=== PATIENT | male | born 1940 | race Caucasian/White ===

== ENCOUNTER 2017-03-01 15:56 | Inpatient (IN) | payer OTHER ==
[~2017-03-01] VITALS: Ht 167.6 cm; Wt 98.3 kg
[~2017-03-01 15:56] MED LIST: ALLOPURINOL100 MG PO; B COMPLETE1 EACH PO; CITALOPRAM HBR20 M1 PO; COLCHICINE,COL0.6 MG PO; COLCHICINE0.6 MG PO; COUMADIN,JANTOVE6 MG PO; DIOVAN HCT 11 TABLET PO; DIOVAN HCT 31 TABLE1 PO; DIOVAN HCT 31 TABLET PO; DOXAZOSIN MESYLA4 MG; FERROUS SULFAT325 M2 PO; FISH OIL 1,0001 EAC7 PO; Feosol PO; GLUCOSAMIN-CHO1 EACH; K-DUR20 MEQ PO; LASIX20 MG PO; LASIX40 MG PO; LASIX80 MG PO; LOPRESSOR100 M1 PO; Lasix PO; Lopressor PO; MULTIPLE VITAM1 EAC1 PO; NORVASC5 MG PO; PRILOSEC20 MG PO; SIMVASTATIN40 MG PO; TOPROL XL100 MG; VITAMIN D1000 UNIT PO; Vicodin,Norco 5/325 PO; ZYLOPRIM100 MG PO; [UNRECOGNIZED DRUG - OTHER]
[2017-03-01 16:38] LABS: ADD MIUA? NO; BILIRUBIN NEGATIVE; BLOOD NEGATIVE; COLOR YELLOW ((YELLOW)); GLUCOSE (STRIP) NEGATIVE; KETONES NEGATIVE; LEUKOCYTES NEGATIVE; NITRITE NEGATIVE; PROTEIN (STRIP) NEGATIVE; SPECIFIC GRAVITY 1.008 (1.000-1.030); UCUL ADDED? NO; UROBILINOGEN 0.2 MG/DL (0.2-1.0)
[2017-03-01 16:45] LABS: HEMATOCRIT 45.2 % (38.0-50.0); MCH 29.4 PG (29.0-34.0); MCHC 33.2 G/DL (30.0-36.0); MCV 88.5 FL (86-99); MEAN PLAT.VOLUME 11.5 uM^3 (9.0-12.4); PLATELET COUNT 160 K/uL (156-360); RBC DIS.WIDTH-CV 13.9 % (11.8-14.6); RBC DIS.WIDTH-SD 44.8 % (39-53); RED BLOOD COUNT 5.11 M/uL (4.00-5.50); WHITE BLOOD COUNT 7.8 K/uL (4.1-10.2)
[2017-03-01 16:55] LABS: CHLORIDE 107 mEq/L (99-109); POTASSIUM 3.3 mEq/L (3.7-5.4); SODIUM 144 mEq/L (136-147)
[2017-03-01 16:57] LABS: GLUCOSE 97 mg/dL (70-99)
[2017-03-01 16:58] LABS: ANION GAP 10 MEQ/L (2-14); INTER. NORMALIZED RATIO 1.5; PROTHROMBIN TIME 15.4 (9.2-11.2)
[2017-03-01 17:01] LABS: GFR ESTIMATE (CALCULATED) > 59 mL/min/; UREA NITROGEN (BUN) 21 mg/dL (9-23)
[2017-03-01 17:09] LABS: TROP-I INTERPRETATION NEGATIVE; TROPONIN-I < 0.01 ng/mL (0.0-0.30)
[2017-03-01] MEDS ORDERED: ALLOPURINOL300 MG PO (20:00)
[2017-03-01] MEDS ORDERED: AMLODIPINE BES2.5 MG PO (20:01)
[2017-03-01] MEDS ORDERED: COLCRYS0.6 MG PO (20:03)
[2017-03-01] MEDS ORDERED: LOSARTAN POTAS100 MG PO (20:04)
[2017-03-01] MEDS ORDERED: FUROSEMIDE40 MG PO (20:04)
[2017-03-01] MEDS ORDERED: LOPRESSOR100 M1 PO (20:05)
[2017-03-01] MEDS ORDERED: DAILY VALUE1 EACH PO (20:06)
[2017-03-01] MEDS ORDERED: PRAVASTATIN SOD80 MG PO (20:07)
[2017-03-01] MEDS ORDERED: B COMPLETE1 EACH PO (20:08)
[2017-03-01] MEDS ORDERED: SERTRALINE HCL100 MG PO (20:08)
[2017-03-01] MEDS ORDERED: CYANOCOBALAM1000 MCG PO (20:09)
[2017-03-01] MEDS ORDERED: ASCORBIC ACID500 M3 PO (20:09)
[2017-03-01] MEDS ORDERED: VITAMIN D22000 UNIT PO (20:10)
[2017-03-01] MEDS ORDERED: XARELTO20 MG PO (20:10)
[2017-03-01 21:42] LABS: HDL CHOLESTEROL 30 MG/DL (Desirable>=40); LDL CHOLESTEROL 71 mg/dL (Desirable<100); NON-HDL CHOLESTEROL 93 mg/dL (Desirable<160); TOTAL CHOLESTEROL 123 mg/dL (Desirable<200); TRIGLYCERIDES 109 MG/DL (Normal: <150)
[2017-03-01 22:04] VITALS: BP 180/86
[2017-03-01 23:25] VITALS: BP 139/73
[2017-03-02 02:34] LABS: TROP-I INTERPRETATION NEGATIVE; TROPONIN-I 0.02 ng/mL (0.0-0.30)
[2017-03-02 04:00] VITALS: BP 148/85
[2017-03-02 06:41] LABS: Estimated Average Glucose 120 mg/dL (70-123); HEMOGLOBIN A1c (GLYCOHEMOGLOB) 5.8 % HGB (Below 5.7)
[2017-03-02 07:04] LABS: HEMATOCRIT 46.8 % (38.0-50.0); MCH 29.1 PG (29.0-34.0); MCHC 32.7 G/DL (30.0-36.0); MCV 89.1 FL (86-99); MEAN PLAT.VOLUME 11.8 uM^3 (9.0-12.4); PLATELET COUNT 170 K/uL (156-360); RBC DIS.WIDTH-CV 14.2 % (11.8-14.6); RBC DIS.WIDTH-SD 45.9 % (39-53); RED BLOOD COUNT 5.25 M/uL (4.00-5.50)
[2017-03-02 07:18] VITALS: BP 181/89
[2017-03-02 07:23] LABS: ALKALINE PHOSPHATASE 59 IU/L (3-129); ANION GAP 8 MEQ/L (2-14); CHLORIDE 106 MEQ/L (99-109); GFR ESTIMATE (CALCULATED) > 59 mL/min/; GLUCOSE 105 mg/dL (70-99); POTASSIUM 3.8 MEQ/L (3.7-5.4); SAMPLE HEMOLYSIS CHECK 0; SAMPLE ICTERIC CHECK 0; SAMPLE LIPEMIA CHECK 0; SODIUM 147 MEQ/L (136-147); TOTAL BILIRUBIN 0.4 MG/DL (0.0-1.0); UREA NITROGEN (BUN) 19 mg/dL (9-23)
[2017-03-02 07:27] LABS: TROP-I INTERPRETATION NEGATIVE; TROPONIN-I < 0.01 ng/mL (0.0-0.30)
[2017-03-02 11:26] VITALS: BP 132/92
[2017-03-02 15:15] VITALS: BP 127/84
[2017-03-02 19:48] VITALS: BP 135/88
[2017-03-02 23:32] VITALS: BP 154/98
[2017-03-03 03:43] VITALS: BP 159/95
[2017-03-03 08:20] VITALS: BP 151/85
[2017-03-03 13:05] VITALS: BP 129/85
[2017-03-03 16:08] VITALS: BP 144/89
[2017-03-03 20:00] VITALS: BP 142/86
[2017-03-04] VITALS: BP 162/88
[2017-03-04 04:00] VITALS: BP 152/89
[2017-03-04 07:57] VITALS: BP 146/76
[2017-03-04] MEDS ORDERED: AMLODIPINE BESYL5 MG PO (11:30)
[2017-03-04] MEDS ORDERED: PROTONIX40 MG PO (13:37)
[2017-03-04] MEDS ORDERED: DULCOLAX10 MG PR (13:37)
== END 2017-03-04 12:21 | DRG 69 ==
LOC: EME 15:56 → 5WEST 20:41 → EDOF 20:41 → 5WEST 21:47 → 5SOUTH 03-02 14:58 → 5WEST 03-02 14:58 → 5SOUTH 03-02 17:35
PROVIDERS: Emergency Medicine; Internal Medicine
PROC: F07M7ZZ Manual Therapy Techniques Treatment of Musculoskeletal System - Whole Body (ICD-10-PCS; principal; 2017-03-02)
DX: G45.9 Transient cerebral ischemic attack, unspecified (principal); I48.0 Paroxysmal atrial fibrillation; I10 Essential (primary) hypertension; I25.10 Atherosclerotic heart disease of native coronary artery without angina pectoris; E78.5 Hyperlipidemia, unspecified; F32.9 Major depressive disorder, single episode, unspecified; R26.81 Unsteadiness on feet; R29.810 Facial weakness; E66.9 Obesity, unspecified; I87.8 Other specified disorders of veins; J32.0 Chronic maxillary sinusitis; I51.7 Cardiomegaly; R68.2 Dry mouth, unspecified; K27.9 Peptic ulcer, site unspecified, unspecified as acute or chronic, without hemorrhage or perforation; K21.9 Gastro-esophageal reflux disease without esophagitis; Z96.653 Presence of artificial knee joint, bilateral; Z68.34 Body mass index [BMI] 34.0-34.9, adult; Z95.0 Presence of cardiac pacemaker; Z98.61 Coronary angioplasty status; Z87.891 Personal history of nicotine dependence
CPT/HCPCS: 70450; 71010; 80048; 80053; 80061; 81003; 82607; 82746; 83036; 84443; 84484; 85027; 85610; 92507 GN; 92523 GN; 93005; 93880; 94660; 97530 GO; 99281; 99285; G0378; G8978 GP CM; G8979 CJ; G8987 GO CJ; G8988 CI

== ENCOUNTER 2017-03-04 08:21 | Inpatient (IN) | payer OTHER ==
[~2017-03-04] VITALS: Ht 167.6 cm; Wt 98.5 kg
[~2017-03-04 08:21] MED LIST changes: +ALLOPURINOL300 MG PO; +AMLODIPINE BES2.5 MG PO; +ASCORBIC ACID500 M3 PO; +COLCRYS0.6 MG PO; +CYANOCOBALAM1000 MCG PO; +DAILY VALUE1 EACH PO; +FUROSEMIDE40 MG PO; +LOSARTAN POTAS100 MG PO; +PRAVASTATIN SOD80 MG PO; +SERTRALINE HCL100 MG PO; +VITAMIN D22000 UNIT PO; +XARELTO20 MG PO
[2017-03-04] MEDS ORDERED: AMLODIPINE BESYL5 MG PO (11:30)
[2017-03-04 12:34] VITALS: BP 137/83
[2017-03-04] MEDS ORDERED: DULCOLAX10 MG PR (13:37)
[2017-03-04] MEDS ORDERED: PROTONIX40 MG PO (13:37)
[2017-03-04 15:02] VITALS: BP 117/75
[2017-03-05 05:33] LABS: HEMATOCRIT 46.1 % (38.0-50.0); MCH 30.1 PG (29.0-34.0); MCHC 33.8 G/DL (30.0-36.0); MCV 88.8 FL (86-99); MEAN PLAT.VOLUME 12.4 uM^3 (9.0-12.4); PLATELET COUNT 158 K/uL (156-360); RBC DIS.WIDTH-CV 14.2 % (11.8-14.6); RBC DIS.WIDTH-SD 45.8 % (39-53); RED BLOOD COUNT 5.19 M/uL (4.00-5.50); WHITE BLOOD COUNT 8.4 K/uL (4.1-10.2)
[2017-03-05 06:16] VITALS: BP 124/79
[2017-03-05 06:19] LABS: ALKALINE PHOSPHATASE 60 IU/L (3-129); ANION GAP 8 MEQ/L (2-14); CHLORIDE 105 MEQ/L (99-109); GFR ESTIMATE (CALCULATED) > 59 mL/min/; GLUCOSE 98 mg/dL (70-99); POTASSIUM 3.6 MEQ/L (3.7-5.4); SAMPLE HEMOLYSIS CHECK 0; SAMPLE ICTERIC CHECK 0; SAMPLE LIPEMIA CHECK 0; SODIUM 143 MEQ/L (136-147); TOTAL BILIRUBIN 0.4 MG/DL (0.0-1.0); UREA NITROGEN (BUN) 24 mg/dL (9-23)
[2017-03-05 08:34] VITALS: BP 134/81
[2017-03-05 15:21] VITALS: BP 138/76
[2017-03-06 05:25] VITALS: BP 138/85
[2017-03-06 06:42] LABS: ANION GAP 8 MEQ/L (2-14); CHLORIDE 106 MEQ/L (99-109); GFR ESTIMATE (CALCULATED) > 59 mL/min/; GLUCOSE 104 mg/dL (70-99); POTASSIUM 3.8 MEQ/L (3.7-5.4); SAMPLE HEMOLYSIS CHECK 0; SAMPLE ICTERIC CHECK 0; SAMPLE LIPEMIA CHECK 0; SODIUM 144 MEQ/L (136-147); UREA NITROGEN (BUN) 23 mg/dL (9-23)
[2017-03-07 05:30] VITALS: BP 152/62
[2017-03-07 15:20] VITALS: BP 158/85
[2017-03-08 05:39] LABS: HEMATOCRIT 46.2 % (38.0-50.0); MCH 29.9 PG (29.0-34.0); MCHC 33.8 G/DL (30.0-36.0); MCV 88.5 FL (86-99); MEAN PLAT.VOLUME 12.2 uM^3 (9.0-12.4); PLATELET COUNT 164 K/uL (156-360); RBC DIS.WIDTH-CV 14.2 % (11.8-14.6); RBC DIS.WIDTH-SD 45.3 % (39-53); RED BLOOD COUNT 5.22 M/uL (4.00-5.50); WHITE BLOOD COUNT 8.1 K/uL (4.1-10.2)
[2017-03-08 05:56] LABS: CHLORIDE 108 mEq/L (99-109); POTASSIUM 3.8 mEq/L (3.7-5.4); SODIUM 145 mEq/L (136-147)
[2017-03-08 05:58] LABS: GLUCOSE 105 mg/dL (70-99)
[2017-03-08 05:59] LABS: ANION GAP 10 MEQ/L (2-14)
[2017-03-08 06:00] LABS: TOTAL BILIRUBIN 0.3 mg/dL (0.0-1.0)
[2017-03-08 06:01] LABS: ALKALINE PHOSPHATASE 61 IU/L (3-129)
[2017-03-08 06:02] LABS: GFR ESTIMATE (CALCULATED) > 59 mL/min/
[2017-03-08 06:03] LABS: UREA NITROGEN (BUN) 28 mg/dL (9-23)
[2017-03-08 06:44] VITALS: BP 134/79
[2017-03-08 15:50] VITALS: BP 121/74
[2017-03-09 05:20] VITALS: BP 142/88
== END 2017-03-09 10:00 | DRG 66 ==
LOC: 3WEST 08:21
PROVIDERS: Physical Medicine & Rehabilitation Pain Medicine
PROC: F07M7ZZ Manual Therapy Techniques Treatment of Musculoskeletal System - Whole Body (ICD-10-PCS; principal; 2017-03-04)
DX: I63.9 Cerebral infarction, unspecified (principal); I48.0 Paroxysmal atrial fibrillation; R47.01 Aphasia; I10 Essential (primary) hypertension; R53.1 Weakness; Z74.09 Other reduced mobility; I25.10 Atherosclerotic heart disease of native coronary artery without angina pectoris; F32.9 Major depressive disorder, single episode, unspecified; G47.30 Sleep apnea, unspecified; E66.9 Obesity, unspecified; R47.81 Slurred speech; E78.5 Hyperlipidemia, unspecified; J32.0 Chronic maxillary sinusitis; M10.9 Gout, unspecified; I51.7 Cardiomegaly; K27.9 Peptic ulcer, site unspecified, unspecified as acute or chronic, without hemorrhage or perforation; Z96.653 Presence of artificial knee joint, bilateral; Z68.35 Body mass index [BMI] 35.0-35.9, adult; Z95.0 Presence of cardiac pacemaker; Z87.891 Personal history of nicotine dependence; Z95.1 Presence of aortocoronary bypass graft
CPT/HCPCS: 80048; 80053; 85027; 92507 GN; 92523 GN; 93005; 94660; 97110 GO; 97532 GN

== ENCOUNTER 2017-07-03 10:37 | Emergency (ER) | payer OTHER ==
[~2017-07-03] VITALS: Ht 165.1 cm; Wt 96.8 kg
[~2017-07-03 10:37] MED LIST changes: +AMLODIPINE BESYL5 MG PO; +DULCOLAX10 MG PR; +PROTONIX40 MG PO
[2017-07-03 12:07] LABS: EOSINOPHIL (%) 4.9 % (0-5); EOSINOPHIL COUNT 0.3 K/uL (0-0.3); IMMATURE GRANULOCYTE (%) 0.7 % (0.0-0.7); IMMATURE GRANULOCYTE COUNT 0.1 K/uL; LYMPHOCYTE COUNT 1.6 K/uL (1.0-2.8); MCH 30.1 PG (29.0-34.0); MCHC 33.7 G/DL (30.0-36.0); MCV 89.2 FL (86-99); MONOCYTE (%) 11.2 % (3-12); MONOCYTE COUNT 0.8 K/uL (0-0.8); NEUTROPHIL (%) 59.7 % (45-76); PLATELET COUNT 155 K/uL (156-360); RBC DIS.WIDTH-SD 45.6 % (39-53); RED BLOOD COUNT 4.82 M/uL (4.00-5.50); WHITE BLOOD COUNT 6.7 K/uL (4.1-10.2)
[2017-07-03 12:08] LABS: INTER. NORMALIZED RATIO 1.2; PROTHROMBIN TIME 13.4 SEC (10.2-12.9)
[2017-07-03 12:11] LABS: CHLORIDE 105 mEq/L (99-109); POTASSIUM 3.6 mEq/L (3.7-5.4); PTT 38.2 SEC (25-37); SODIUM 142 mEq/L (136-147)
[2017-07-03 12:12] LABS: GLUCOSE 94 mg/dL (70-99)
[2017-07-03 12:14] LABS: ANION GAP 8 MEQ/L (2-14)
[2017-07-03 12:16] LABS: GFR ESTIMATE (CALCULATED) > 59 mL/min/
[2017-07-03 12:17] LABS: UREA NITROGEN (BUN) 24 mg/dL (9-23)
[2017-07-03 12:42] LABS: ADD MIUA? YES; BILIRUBIN NEGATIVE; BLOOD LARGE; COLOR BLOODY ((YELLOW)); GLUCOSE (STRIP) NEGATIVE; KETONES NEGATIVE; LEUKOCYTES NEGATIVE; NITRITE NEGATIVE; PH, URINE 6.5 (5-8); PROTEIN (STRIP) 300; UROBILINOGEN 0.2 MG/DL (0.2-1.0)
[2017-07-03 12:44] LABS: RED BLOOD CELLS TNTC /HPF (0-5)
[2017-07-03] MEDS ORDERED: BACTRIM,SEPT1 TABLET PO (13:40)
[2017-07-03 13:56] VITALS: BP 161/97
== END 2017-07-03 14:23 | disposition home or self-care (01) ==
LOC: EME 10:37
PROVIDERS: Emergency Medicine
DX: R31.9 Hematuria, unspecified (principal); I48.91 Unspecified atrial fibrillation; Z86.73 Personal history of transient ischemic attack (TIA), and cerebral infarction without residual deficits; Z79.01 Long term (current) use of anticoagulants; I10 Essential (primary) hypertension; K21.9 Gastro-esophageal reflux disease without esophagitis; F41.9 Anxiety disorder, unspecified; F32.9 Major depressive disorder, single episode, unspecified; Z95.1 Presence of aortocoronary bypass graft; Z85.828 Personal history of other malignant neoplasm of skin; Z96.659 Presence of unspecified artificial knee joint
CPT/HCPCS: 80048; 81003; 85025; 85610; 85730; 99281; 99284

== ENCOUNTER 2017-07-15 07:15 | Inpatient (IN) | payer OTHER ==
[~2017-07-15] VITALS: Ht 167.6 cm; Wt 97.9 kg
[~2017-07-15 07:15] MED LIST changes: +BACTRIM,SEPT1 TABLET PO
[2017-07-15 08:17] LABS: COLOR BLOODY ((YELLOW))
[2017-07-15 08:18] LABS: ADD MIUA? YES; BILIRUBIN NEGATIVE; BLOOD LARGE; GLUCOSE (STRIP) NEGATIVE; KETONES NEGATIVE; LEUKOCYTES NEGATIVE; NITRITE NEGATIVE; PH, URINE 7.5 (5-8); PROTEIN (STRIP) 100; UROBILINOGEN 0.2 MG/DL (0.2-1.0)
[2017-07-15 08:21] LABS: RED BLOOD CELLS TNTC /HPF (0-5); UCUL ADDED? YES
[2017-07-15 08:23] LABS: EOSINOPHIL (%) 3.8 % (0-5); EOSINOPHIL COUNT 0.3 K/uL (0-0.3); HEMATOCRIT 41.1 % (38.0-50.0); IMMATURE GRANULOCYTE (%) 0.3 % (0.0-0.7); INSTRUMENT ABS NEUTROPHIL CT 4.9 K/uL; LYMPHOCYTE COUNT 1.6 K/uL (1.0-2.8); MCHC 33.8 G/DL (30.0-36.0); MCV 88.8 FL (86-99); MEAN PLAT.VOLUME 11.1 uM^3 (9.0-12.4); MONOCYTE (%) 9.7 % (3-12); MONOCYTE COUNT 0.7 K/uL (0-0.8); NEUTROPHIL (%) 65.3 % (45-76); NEUTROPHIL COUNT 4.9 K/uL (1.8-6.4); PLATELET COUNT 183 K/uL (156-360); RBC DIS.WIDTH-CV 13.7 % (11.8-14.6); RBC DIS.WIDTH-SD 44.4 % (39-53); RED BLOOD COUNT 4.63 M/uL (4.00-5.50); WHITE BLOOD COUNT 7.6 K/uL (4.1-10.2)
[2017-07-15 08:28] LABS: INTER. NORMALIZED RATIO 1.2; PROTHROMBIN TIME 13.7 SEC (10.2-12.9)
[2017-07-15 08:55] LABS: CHLORIDE 104 mEq/L (99-109); POTASSIUM 3.6 mEq/L (3.7-5.4); SODIUM 140 mEq/L (136-147)
[2017-07-15 08:57] LABS: GLUCOSE 100 mg/dL (70-99)
[2017-07-15 08:59] LABS: ANION GAP 12 MEQ/L (2-14)
[2017-07-15 09:01] LABS: GFR ESTIMATE (CALCULATED) > 59 mL/min/
[2017-07-15 09:02] LABS: UREA NITROGEN (BUN) 25 mg/dL (9-23)
[2017-07-15] MEDS ORDERED: NORVASC2.5 MG PO (10:19)
[2017-07-15] MEDS ORDERED: PROSCAR5 MG PO (10:20)
[2017-07-15] MEDS ORDERED: FLOMAX0.4 MG PO (10:20)
[2017-07-15 15:31] VITALS: BP 139/75
[2017-07-15 18:00] LABS: EOSINOPHIL (%) 2.1 % (0-5); EOSINOPHIL COUNT 0.2 K/uL (0-0.3); HEMATOCRIT 40.7 % (38.0-50.0); IMMATURE GRANULOCYTE (%) 0.2 % (0.0-0.7); INSTRUMENT ABS NEUTROPHIL CT 6.7 K/uL; LYMPHOCYTE COUNT 1.7 K/uL (1.0-2.8); MCH 30.1 PG (29.0-34.0); MCHC 33.4 G/DL (30.0-36.0); MEAN PLAT.VOLUME 10.8 uM^3 (9.0-12.4); MONOCYTE (%) 7.4 % (3-12); MONOCYTE COUNT 0.7 K/uL (0-0.8); NEUTROPHIL (%) 72.1 % (45-76); NEUTROPHIL COUNT 6.7 K/uL (1.8-6.4); PLATELET COUNT 164 K/uL (156-360); RBC DIS.WIDTH-CV 13.8 % (11.8-14.6); RBC DIS.WIDTH-SD 45.5 % (39-53); RED BLOOD COUNT 4.52 M/uL (4.00-5.50); WHITE BLOOD COUNT 9.4 K/uL (4.1-10.2)
[2017-07-15 18:18] LABS: ANION GAP 8 MEQ/L (2-14); CHLORIDE 107 MEQ/L (99-109); GFR ESTIMATE (CALCULATED) > 59 mL/min/; GLUCOSE 120 mg/dL (70-99); POTASSIUM 3.2 MEQ/L (3.7-5.4); SAMPLE HEMOLYSIS CHECK 0; SAMPLE ICTERIC CHECK 0; SAMPLE LIPEMIA CHECK 0; SODIUM 144 MEQ/L (136-147); UREA NITROGEN (BUN) 20 mg/dL (9-23)
[2017-07-15 19:57] VITALS: BP 148/78
[2017-07-15 23:50] VITALS: BP 175/83
[2017-07-16 04:44] VITALS: BP 186/91
[2017-07-16 06:36] LABS: HEMATOCRIT 39.1 % (38.0-50.0); MCHC 34.5 G/DL (30.0-36.0); MCV 89.9 FL (86-99); MEAN PLAT.VOLUME 11.6 uM^3 (9.0-12.4); PLATELET COUNT 176 K/uL (156-360); RED BLOOD COUNT 4.35 M/uL (4.00-5.50); WHITE BLOOD COUNT 14.1 K/uL (4.1-10.2)
[2017-07-16 07:02] LABS: ANION GAP 10 MEQ/L (2-14); CHLORIDE 105 MEQ/L (99-109); GFR ESTIMATE (CALCULATED) 48 mL/min/; GLUCOSE 143 mg/dL (70-99); POTASSIUM 3.6 MEQ/L (3.7-5.4); SAMPLE HEMOLYSIS CHECK 0; SAMPLE ICTERIC CHECK 0; SAMPLE LIPEMIA CHECK 0; SODIUM 142 MEQ/L (136-147); UREA NITROGEN (BUN) 27 mg/dL (9-23)
[2017-07-16 08:32] VITALS: BP 174/85
[2017-07-16 12:23] VITALS: BP 142/78
[2017-07-16 15:00] VITALS: BP 138/80
[2017-07-16 17:50] LABS: EOSINOPHIL (%) 0.8 % (0-5); EOSINOPHIL COUNT 0.1 K/uL (0-0.3); HEMATOCRIT 39.8 % (38.0-50.0); IMMATURE GRANULOCYTE (%) 0.4 % (0.0-0.7); IMMATURE GRANULOCYTE COUNT 0.1 K/uL; INSTRUMENT ABS NEUTROPHIL CT 9.1 K/uL; LYMPHOCYTE COUNT 1.2 K/uL (1.0-2.8); MCH 30.1 PG (29.0-34.0); MCHC 33.2 G/DL (30.0-36.0); MCV 90.9 FL (86-99); MONOCYTE (%) 6.3 % (3-12); MONOCYTE COUNT 0.7 K/uL (0-0.8); NEUTROPHIL (%) 81.7 % (45-76); NEUTROPHIL COUNT 9.1 K/uL (1.8-6.4); PLATELET COUNT 189 K/uL (156-360); RBC DIS.WIDTH-CV 14.1 % (11.8-14.6); RBC DIS.WIDTH-SD 47.1 % (39-53); RED BLOOD COUNT 4.38 M/uL (4.00-5.50); WHITE BLOOD COUNT 11.2 K/uL (4.1-10.2)
[2017-07-16 18:12] LABS: ANION GAP 11 MEQ/L (2-14); CHLORIDE 108 MEQ/L (99-109); GFR ESTIMATE (CALCULATED) > 59 mL/min/; GLUCOSE 137 mg/dL (70-99); POTASSIUM 3.7 MEQ/L (3.7-5.4); SAMPLE HEMOLYSIS CHECK 0; SAMPLE ICTERIC CHECK 0; SAMPLE LIPEMIA CHECK 0; SODIUM 143 MEQ/L (136-147); UREA NITROGEN (BUN) 24 mg/dL (9-23)
[2017-07-17 00:41] VITALS: BP 175/84
[2017-07-17 06:50] VITALS: BP 183/93
[2017-07-17 07:04] LABS: EOSINOPHIL (%) 2.3 % (0-5); EOSINOPHIL COUNT 0.3 K/uL (0-0.3); HEMATOCRIT 40.9 % (38.0-50.0); IMMATURE GRANULOCYTE (%) 0.5 % (0.0-0.7); IMMATURE GRANULOCYTE COUNT 0.1 K/uL; INSTRUMENT ABS NEUTROPHIL CT 7.9 K/uL; LYMPHOCYTE COUNT 1.7 K/uL (1.0-2.8); MCH 30.4 PG (29.0-34.0); MCHC 33.5 G/DL (30.0-36.0); MCV 90.9 FL (86-99); MEAN PLAT.VOLUME 11.9 uM^3 (9.0-12.4); MONOCYTE (%) 10.1 % (3-12); MONOCYTE COUNT 1.1 K/uL (0-0.8); NEUTROPHIL (%) 71.7 % (45-76); NEUTROPHIL COUNT 7.9 K/uL (1.8-6.4); PLATELET COUNT 182 K/uL (156-360); RBC DIS.WIDTH-CV 14.3 % (11.8-14.6)
[2017-07-17 07:27] LABS: ANION GAP 8 MEQ/L (2-14); CHLORIDE 110 MEQ/L (99-109); GFR ESTIMATE (CALCULATED) > 59 mL/min/; GLUCOSE 97 mg/dL (70-99); POTASSIUM 3.8 MEQ/L (3.7-5.4); SAMPLE HEMOLYSIS CHECK 0; SAMPLE ICTERIC CHECK 0; SAMPLE LIPEMIA CHECK 0; SODIUM 146 MEQ/L (136-147); UREA NITROGEN (BUN) 24 mg/dL (9-23)
[2017-07-17 15:00] VITALS: BP 159/77
[2017-07-17 23:34] VITALS: BP 133/67
[2017-07-18 06:08] LABS: POINT-OF-CARE METER ID UU13113725
[2017-07-18 06:10] VITALS: BP 168/76
[2017-07-18 06:57] LABS: MCH 31.5 PG (29.0-34.0); MCHC 34.5 G/DL (30.0-36.0); MCV 91.3 FL (86-99); MEAN PLAT.VOLUME 11.8 uM^3 (9.0-12.4); PLATELET COUNT 167 K/uL (156-360); RBC DIS.WIDTH-CV 14.4 % (11.8-14.6); RBC DIS.WIDTH-SD 48.4 % (39-53); RED BLOOD COUNT 4.16 M/uL (4.00-5.50); WHITE BLOOD COUNT 8.9 K/uL (4.1-10.2)
[2017-07-18 07:17] LABS: ANION GAP 10 MEQ/L (2-14); CHLORIDE 108 MEQ/L (99-109); GFR ESTIMATE (CALCULATED) > 59 mL/min/; GLUCOSE 93 mg/dL (70-99); POTASSIUM 3.7 MEQ/L (3.7-5.4); SAMPLE HEMOLYSIS CHECK 0; SAMPLE ICTERIC CHECK 0; SAMPLE LIPEMIA CHECK 0; SODIUM 145 MEQ/L (136-147); UREA NITROGEN (BUN) 21 mg/dL (9-23)
[2017-07-18 07:44] VITALS: BP 182/87
[2017-07-18 15:33] VITALS: BP 165/76
[2017-07-18 22:48] VITALS: BP 146/74
[2017-07-19 07:25] VITALS: BP 171/74
[2017-07-19 16:23] VITALS: BP 117/57
[2017-07-19 20:54] VITALS: BP 155/73
[2017-07-19 22:46] VITALS: BP 134/72
[2017-07-20 06:55] LABS: HEMATOCRIT 34.1 % (38.0-50.0); MCH 31.2 PG (29.0-34.0); MCV 91.7 FL (86-99); MEAN PLAT.VOLUME 11.7 uM^3 (9.0-12.4); PLATELET COUNT 166 K/uL (156-360); RBC DIS.WIDTH-CV 13.9 % (11.8-14.6); RBC DIS.WIDTH-SD 46.8 % (39-53); RED BLOOD COUNT 3.72 M/uL (4.00-5.50); WHITE BLOOD COUNT 14.1 K/uL (4.1-10.2)
[2017-07-20 07:14] LABS: ANION GAP 5 MEQ/L (2-14); CHLORIDE 107 MEQ/L (99-109); GFR ESTIMATE (CALCULATED) > 59 mL/min/; GLUCOSE 105 mg/dL (70-99); POTASSIUM 3.6 MEQ/L (3.7-5.4); SAMPLE HEMOLYSIS CHECK 0; SAMPLE ICTERIC CHECK 0; SAMPLE LIPEMIA CHECK 0; SODIUM 142 MEQ/L (136-147); UREA NITROGEN (BUN) 18 mg/dL (9-23)
[2017-07-20 16:25] VITALS: BP 140/65
[2017-07-20 21:38] VITALS: BP 165/77
[2017-07-20 23:26] VITALS: BP 142/72
[2017-07-21 06:52] VITALS: BP 183/88
[2017-07-21 09:29] LABS: HEMATOCRIT 33.7 % (38.0-50.0); MCHC 32.6 G/DL (30.0-36.0); MCV 91.8 FL (86-99); MEAN PLAT.VOLUME 11.3 uM^3 (9.0-12.4); PLATELET COUNT 172 K/uL (156-360); RBC DIS.WIDTH-CV 13.9 % (11.8-14.6); RBC DIS.WIDTH-SD 47.2 % (39-53); RED BLOOD COUNT 3.67 M/uL (4.00-5.50); WHITE BLOOD COUNT 11.5 K/uL (4.1-10.2)
[2017-07-21 09:54] LABS: ANION GAP 9 MEQ/L (2-14); CHLORIDE 108 MEQ/L (99-109); POTASSIUM 3.4 MEQ/L (3.7-5.4); SAMPLE HEMOLYSIS CHECK 0; SAMPLE ICTERIC CHECK 0; SAMPLE LIPEMIA CHECK 0; SODIUM 142 MEQ/L (136-147)
[2017-07-21 10:00] LABS: GFR ESTIMATE (CALCULATED) > 59 mL/min/; GLUCOSE 120 mg/dL (70-99); UREA NITROGEN (BUN) 19 mg/dL (9-23)
[2017-07-21] MEDS ORDERED: AUGMENTIN875 MG PO (11:47)
== END 2017-07-21 13:06 | disposition home or self-care (01) | DRG 713 ==
LOC: EME 07:15 → 5EAST 10:18 → EDOF 10:18 → ENRESERV 10:19 → 5EAST 15:14 → ENPENDDIS 07-21 → 5EAST 07-21 13:06
PROVIDERS: Emergency Medicine; Hospitalist; Internal Medicine
PROC: 0V508ZZ Destruction of Prostate, Via Natural or Artificial Opening Endoscopic (ICD-10-PCS; principal; 2017-07-18)
DX: N40.1 Benign prostatic hyperplasia with lower urinary tract symptoms (principal); R31.0 Gross hematuria; I48.91 Unspecified atrial fibrillation; Z96.653 Presence of artificial knee joint, bilateral; I25.10 Atherosclerotic heart disease of native coronary artery without angina pectoris; I10 Essential (primary) hypertension; G47.33 Obstructive sleep apnea (adult) (pediatric); D72.829 Elevated white blood cell count, unspecified; E78.5 Hyperlipidemia, unspecified; M19.90 Unspecified osteoarthritis, unspecified site; F32.9 Major depressive disorder, single episode, unspecified; R33.8 Other retention of urine; K21.9 Gastro-esophageal reflux disease without esophagitis; R26.81 Unsteadiness on feet; Z87.11 Personal history of peptic ulcer disease; Z95.1 Presence of aortocoronary bypass graft; Z95.0 Presence of cardiac pacemaker; Z86.73 Personal history of transient ischemic attack (TIA), and cerebral infarction without residual deficits; Z87.891 Personal history of nicotine dependence; Z79.01 Long term (current) use of anticoagulants; N13.8 Other obstructive and reflux uropathy; Z85.828 Personal history of other malignant neoplasm of skin; Z79.899 Other long term (current) drug therapy
CPT/HCPCS: 74176; 74177; 80048; 80048 91; 81003; 82948; 85025; 85025 91; 85027; 85610; 87086; 88305; 99281; 99285; J0360; J0696; J1885; J2250; J2270; J2405; J7030; J7050